=== PATIENT | female | born 1955 | race Caucasian/White ===

== ENCOUNTER 2022-02-18 03:14 | Emergency (ER) | payer SELFPAY ==
--- NOTE | 2022-02-18 03:53 | NUR ---
pt left without being triaged.
== END 2022-02-18 03:53 | disposition left against medical advice (07) ==
LOC: ER 03:33
DX: Z53.21 Procedure and treatment not carried out due to patient leaving prior to being seen by health care provider (principal)
CPT/HCPCS: A4663